=== PATIENT | female | born 1940 | race Caucasian/White ===

== ENCOUNTER 2018-07-02 11:08 | Emergency (ER) | payer MEDICARE ==
[~2018-07-02] VITALS: Ht 165.1 cm; Wt 87.3 kg
[~2018-07-02 11:08] MED LIST: AVELOX400 MG PO; CALCIUM 500 + D PO; CALCIUM600 M1 OR; CHILD'S ASA81 MG PO; CIPRO250 MG OR; CRANBERRY475 MG PO; EPIPEN0.3 MG IM; FLAGYL250 MG OR; IBUPROFEN600 MG PO; LANSOPRAZOLE30 MG PO; NEXIUM20 M1 OR; NITROFUR MAC50 MG PO; OCCUVITE PO; OCUVITE OR; PERCOCET 5/321 COMBO PO; PRILOSEC20 MG PO; ROBITUSSIN AC10 ML PO; SIMVASTATIN20 MG PO; SIMVASTATIN40 MG PO; ULTRAM50 M1 PO; VITAMIN B-121000 MCG PO; ZOFRAN ODT4 MG SL; ZPAK PO; [UNRECOGNIZED DRUG - CODE] OR
[2018-07-02] MEDS ORDERED: KEFLEX500 M1 PO (11:35)
[2018-07-02 11:38] VITALS: BP 158/92
== END 2018-07-02 11:44 | disposition home or self-care (01) ==
LOC: ED 11:08
DX: L03.116 Cellulitis of left lower limb (principal); S90.512A Abrasion, left ankle, initial encounter; K21.9 Gastro-esophageal reflux disease without esophagitis; E78.00 Pure hypercholesterolemia, unspecified; W22.8XXA Striking against or struck by other objects, initial encounter; Y92.009 Unspecified place in unspecified non-institutional (private) residence as the place of occurrence of the external cause

== ENCOUNTER 2020-07-27 08:21 | Emergency (ER) | payer MEDICARE ==
[~2020-07-27] VITALS: Ht 165.1 cm; Wt 82.7 kg
[~2020-07-27 08:21] MED LIST changes: +KEFLEX500 M1 PO
[2020-07-27] MEDS ORDERED: ELIQUIS5 MG PO (08:40)
[2020-07-27 08:41] LABS: HEMOGLOBIN 14.4 g/dl (12.0-16.0); IMMATURE GRANULOCYTES 0.4 % (0.0-5.0); MEAN CELL VOLUME 94.3 fL CALC (80.0-100.0); MEAN CORPUSCULAR HGB 30.2 pG CALC (26.0-32.0); NEUT# 9.88 thou/uL (2.00-7.15); RED BLOOD COUNT 4.77 mill/uL (4.20-5.60); RED CELL DISTRI WIDTH 12.4 % (11.5-15.5)
[2020-07-27 08:57] LABS: ALBUMIN 4.1 g/dL (3.2-5.0); ALKALINE PHOSPHATASE 92 u/l (38-126); ANION GAP 10 (6-22 (CALC)); BUN 14 mg/dL (8-23); BUN/CREATININE RATIO 17 (12-20 (CALC)); CARBON DIOXIDE 25 mmol/l (22-30); CHLORIDE 102 mmol/l (95-108); CREATININE 0.8 mg/dL (0.5-1.0); GFR > 60 ML/MIN (>=60 (CALC)); GFR FOR AFR.AMER. > 60 ML/MIN (>=60 (CALC)); POTASSIUM 3.8 mmol/l (3.5-5.1); SGOT/AST 25 u/l (9-36); SODIUM 134 mmol/l (137-146); TOTAL PROTEIN 7.4 g/dL (6.3-8.2)
[2020-07-27 09:31] LABS: URINE BLOOD DIPSTICK NEGATIVE (NEGATIVE); URINE GLUCOSE - DIPSTICK NEGATIVE (NEGATIVE); URINE KETONE TRACE mg/dL (NEGATIVE); URINE LEUK ESTERASE NEGATIVE (NEGATIVE); URINE PROTEIN - DIPSTICK TRACE mg/dL (NEG-TRACE)
[2020-07-27 09:41] LABS: URINE BILIRUBIN - DIPSTICK SMALL (NEGATIVE)
[2020-07-27 09:42] LABS: URINE COLOR DK. YELLOW; URINE NITRITE - DIPSTICK NEGATIVE (Negative)
[2020-07-27] MEDS ORDERED: CIPROFLOXACN500 MG PO (11:01)
[2020-07-27] MEDS ORDERED: METRONIDAZOL500 MG PO (11:01)
[2020-07-27] MEDS ORDERED: ONDANSETRON4 MG PO (11:01)
[2020-07-27 12:54] VITALS: BP 136/71
== END 2020-07-27 12:54 | disposition home or self-care (01) ==
LOC: ED 08:21
PROVIDERS: Emergency Medicine
DX: K57.32 Diverticulitis of large intestine without perforation or abscess without bleeding (principal); K21.9 Gastro-esophageal reflux disease without esophagitis; E78.00 Pure hypercholesterolemia, unspecified; Z85.51 Personal history of malignant neoplasm of bladder; Z20.822 Contact with and (suspected) exposure to COVID-19
CPT/HCPCS: J1956; Q9967

== ENCOUNTER 2022-01-14 06:05 | Emergency (ER) | payer MEDICARE ==
[2022-01-14] VITALS (8 sets, daily range): BP systolic 124–141; BP diastolic 66–83
[~2022-01-14] VITALS: Ht 165.1 cm; Wt 81.0 kg
[~2022-01-14 06:05] MED LIST changes: +CIPROFLOXACN500 MG PO; +ELIQUIS5 MG PO; +METRONIDAZOL500 MG PO; +ONDANSETRON4 MG PO
[2022-01-14] MEDS ORDERED: XARELTO10 MG PO (06:28)
[2022-01-14] MEDS ORDERED: MAGNESIUM 250 M1 TAB PO (06:29)
[2022-01-14 06:58] LABS: HEMATOCRIT 45.5 % (37.0-47.0); HEMOGLOBIN 14.8 g/dl (12.0-16.0); MEAN CELL VOLUME 94.4 fL CALC (80.0-100.0); MEAN CORPUSCULAR HGB 30.7 pG CALC (26.0-32.0); MEAN CORPUSCULAR HGB CONC 32.5 g/dL CAL (32.0-36.0); NEUT# 4.19 thou/uL (2.00-7.15); RED BLOOD COUNT 4.82 mill/uL (4.20-5.60); RED CELL DISTRI WIDTH 12.5 % (11.5-15.5)
[2022-01-14 07:13] LABS: ALKALINE PHOSPHATASE 94 u/l (38-126); ANION GAP 12 (6-22 (CALC)); BILIRUBIN, TOTAL 0.6 mg/dL (0.0-1.4); BUN 19 mg/dL (8-23); BUN/CREATININE RATIO 24 (12-20 (CALC)); CARBON DIOXIDE 24 mmol/l (22-30); CHLORIDE 105 mmol/l (95-108); CREATININE 0.8 mg/dL (0.5-1.0); GFR FOR AFR.AMER. > 60 ML/MIN (>=60 (CALC)); GFR OTHER RACES > 60 ML/MIN (>=60 (CALC)); LIPASE 51 u/l (23-300); POTASSIUM 4.2 mmol/l (3.5-5.1); SGOT/AST 33 u/l (9-36); SODIUM 136 mmol/l (137-146)
[2022-01-14 08:43] LABS: URINE BILIRUBIN - DIPSTICK NEGATIVE (NEGATIVE); URINE BLOOD DIPSTICK NEGATIVE (NEGATIVE); URINE COLOR YELLOW; URINE GLUCOSE - DIPSTICK NEGATIVE (NEGATIVE); URINE KETONE NEGATIVE (NEGATIVE); URINE PROTEIN - DIPSTICK NEGATIVE (NEG-TRACE); URINE UROBILINOGEN - DIPSTICK 0.2 E.U./dL (0.2)
[2022-01-14 08:45] LABS: URINE NITRITE - DIPSTICK NEGATIVE (Negative)
[2022-01-14] MEDS ORDERED: CIPROFLOXACN500 MG PO (08:45)
[2022-01-14] MEDS ORDERED: METRONIDAZOLE500 MG PO (08:45)
[2022-01-14] MEDS ORDERED: ZOFRAN4 MG/TAB PO (08:45)
[2022-01-14 08:46] LABS: URINE LEUK ESTERASE MODERATE (NEGATIVE)
[2022-01-14 08:50] LABS: URINE BACTERIA FEW hpf; URINE SQUAMOUS EPITHELIAL CELL MANY EPI/hpf (0-FEW)
== END 2022-01-14 08:55 | disposition home or self-care (01) ==
LOC: ED 06:05
PROVIDERS: Family Medicine
DX: K57.32 Diverticulitis of large intestine without perforation or abscess without bleeding (principal); K21.9 Gastro-esophageal reflux disease without esophagitis; E78.00 Pure hypercholesterolemia, unspecified; I48.91 Unspecified atrial fibrillation
CPT/HCPCS: Q9967

== ENCOUNTER 2024-05-30 07:59 | Observation (INO) | payer MEDICARE ==
[~2024-05-30] VITALS: Ht 165.1 cm; Wt 82.2 kg
[2024-05-30] VITALS (19 sets, daily range): BP systolic 113–150; BP diastolic 56–89
[~2024-05-30 07:59] MED LIST changes: +MAGNESIUM 250 M1 TAB PO; +METRONIDAZOLE500 MG PO; +XARELTO10 MG PO; +ZOFRAN4 MG/TAB PO
--- NOTE | 2024-05-30 08:00 | NUR ---
PT BROUGHT BACK TO ER ROOM 6 VIA EMS
[2024-05-30 08:21] LABS: BASO% 0.4 % (0-3); EOS% 1.8 % (0-8); HEMATOCRIT 45.2 % (37.0-47.0); HEMOGLOBIN 14.3 g/dl (12.0-16.0); IMMATURE GRANULOCYTES 0.2 % (0.0-5.0); MEAN CELL VOLUME 95.4 fL CALC (80.0-100.0); MEAN CORPUSCULAR HGB 30.2 pG CALC (26.0-32.0); MEAN CORPUSCULAR HGB CONC 31.6 g/dL CAL (32.0-36.0); MONO% 8.5 % (2-13); NEUT# 5.58 thou/uL (2.00-7.15); NEUT% 68.1 % (42-76); RED BLOOD COUNT 4.74 mill/uL (4.20-5.60); RED CELL DISTRI WIDTH 12.8 % (11.5-15.5)
[2024-05-30 08:35] LABS: ALBUMIN 4.1 g/dL (3.2-5.0); ALKALINE PHOSPHATASE 84 u/l (38-126); ANION GAP 10 (6-22 (CALC)); BILIRUBIN, TOTAL 1.1 mg/dL (0.02-1.3); BUN 14 mg/dL (8-23); BUN/CREATININE RATIO 17 (12-20 (CALC)); CARBON DIOXIDE 25 mmol/l (22-30); CHLORIDE 107 mmol/l (95-108); CREATININE 0.8 mg/dL (0.5-1.0); ESTIMATED GFR 72 ML/MIN (>=90 (CALC)); LIPASE 52 u/l (23-300); POTASSIUM 4.2 mmol/l (3.5-5.1); SGOT/AST 34 u/l (9-36); SODIUM 138 mmol/l (137-146); TOTAL PROTEIN 7.4 g/dL (6.3-8.2)
[2024-05-30] MEDS ORDERED: KETOROLAC TROMETHAMINE 15 MG/ML SDV IV ONE (08:45)
--- NOTE | 2024-05-30 09:04 | NUR ---
Pt to CT scan.
--- NOTE | 2024-05-30 10:15 | NUR ---
Reassessment of patient completed. Resting comfortably in stretcher.
--- NOTE | 2024-05-30 11:02 | NUR ---
Reassessment of patient completed. No distress noted.
[2024-05-30] MEDS ORDERED: MAGNESIUM HYDROXIDE 30 ML UDC PO PRN (11:50)
[2024-05-30] MEDS ORDERED: ACETAMINOPHEN 325 MG/TAB PO PRN (11:50)
[2024-05-30] MEDS ORDERED: SODIUM CHLORIDE 0.9% 1,000 ML IV PRN (11:50)
[2024-05-30] MEDS ORDERED: PROTONIX40 M2 PO (11:54)
[2024-05-30] MEDS ORDERED: ASPIRIN 81 LOW81 MG PO (11:58)
[2024-05-30 12:02] LABS: URINE BILIRUBIN - DIPSTICK Negative (NEGATIVE); URINE BLOOD DIPSTICK Negative (NEGATIVE); URINE GLUCOSE - DIPSTICK Negative (NEGATIVE); URINE KETONE Negative (NEGATIVE); URINE LEUK ESTERASE Negative (NEGATIVE); URINE NITRITE - DIPSTICK Negative (Negative); URINE PH 6.5 (4.5-8.0); URINE PROTEIN - DIPSTICK Negative (NEG-TRACE); URINE UROBILINOGEN - DIPSTICK 0.2 E.U./dL (0.2)
[2024-05-30 12:03] LABS: URINE COLOR Yellow
--- NOTE | 2024-05-30 12:49 | NUR ---
Called and gave report to OMAR Olivia
[2024-05-30] MEDS ORDERED: PANTOPRAZOLE SODIUM Sesquihydr 40 MG/TAB PO SCH (14:00)
[2024-05-30] MEDS ORDERED: ONDANSETRON HCl 4 MG/2 ML SDV IV PRN (15:45)
[2024-05-30] MEDS ORDERED: KETOROLAC TROMETHAMINE 15 MG/ML SDV IV PRN (15:45)
--- NOTE | 2024-05-30 15:58 | NUR ---
PT IS ALERT TIMES 4. PT IS A NEW ADMIT TO THE UNIT AT 1330 THIS SHIFT. OT DX IS ABDOMEN PAIN SHE HAS A HX OF AFIB BLADDER/CANCER AND GERD. PT IS AMBULATORY WITH A STANDBY ASSIST IN HER ROOM. PT HAS HAD 1 LOOSE STOOL UPON ARRIVAL TO THE UNIT. MEDICATION GIVEN ORDERED. PT HAS A IV TO THE LEFT A/C THAT IS INFUSING WELL NO S/O INFECTION NOTED. PT WAS EDUCATED ON THE SAFETY OF USING HER CALL RUSSELL TO ASK FOR HELP. ALL SAFETY MEASURES ARE IN PLACE. PT IS ON ROOM AIR. PT SKIN IS INTACT. LUNG SOUNDS ARE CLEAR. PT VERBALIZED SHE UNDERSTOOD THE EDUCATION ON FALL PREVENTION. NURSING WILL CONTINUE TO [facility] FOR REHAB MEDICINE.
--- NOTE | 2024-05-30 18:47 | NUR ---
1600 NOTE: PT IS ALERT AND CAN MAKE HE NEEDS KNOWN. PT iv FLUIDS CONTINUE TO INFUSION ORDERED. PT IS ON A CLEAR LIQUID DIET. PT PAIN MANAGEMENT IN PROGRESS WITH POSITIVE EFFECT. ALL SAFETY MEASURES IN PLACE. NURSING WILL CONTINUE TO MONITIOR.
[2024-05-30] MEDS ORDERED: ENOXAPARIN SODIUM 40 MG/0.4 ML SYR SC SCH (21:00)
[2024-05-31] VITALS (8 sets, daily range): BP systolic 102–132; BP diastolic 54–75
[2024-05-31 05:50] LABS: BASO% 0.4 % (0-3); EOS% 4.2 % (0-8); HEMATOCRIT 39.9 % (37.0-47.0); HEMOGLOBIN 12.5 g/dl (12.0-16.0); IMMATURE GRANULOCYTES 0.2 % (0.0-5.0); LYMPH% 24.4 % (15-41); MEAN CELL VOLUME 96.6 fL CALC (80.0-100.0); MEAN CORPUSCULAR HGB 30.3 pG CALC (26.0-32.0); MEAN CORPUSCULAR HGB CONC 31.3 g/dL CAL (32.0-36.0); MONO% 10.3 % (2-13); NEUT# 3.31 thou/uL (2.00-7.15); NEUT% 60.5 % (42-76); RED BLOOD COUNT 4.13 mill/uL (4.20-5.60); RED CELL DISTRI WIDTH 12.9 % (11.5-15.5)
[2024-05-31 06:02] LABS: BILIRUBIN, TOTAL 0.8 mg/dL (0.02-1.3); CREATININE 0.8 mg/dL (0.5-1.0); MAGNESIUM 2.1 mg/dL (1.6-2.3); POTASSIUM 3.9 mmol/l (3.5-5.1)
[2024-05-31 06:17] LABS: ALBUMIN 2.9 g/dL (3.2-5.0); TOTAL PROTEIN 5.5 g/dL (6.3-8.2)
--- NOTE | 2024-05-31 07:15 | NUR ---
REPORT RECEIVED FROM ELLIERN
--- NOTE | 2024-05-31 08:36 | NUR ---
AT BEDSIDE DISCUSSING POC WITH PT.
--- NOTE | 2024-05-31 08:40 | NUR ---
PT RESTING IN SEMI FOWLERS POSITION,A&O X3;PT DENIES ANY CURRENT PAIN OR DISCOMFORTS, PAIN SCALE AND REPORTING EDUCATED;RESPIRATIONS EVEN AND UNLABORED ON RA;ABDOMEN SOFT ON PALPATION WITH TENDERNESS NOTED THROGHOUT;STRONG PEDAL PULSES;SKIN INTACT;TELE MONITORING [address];#20G TO LFA INFUSING NS @ 100ML/HR,SITE APPEARS HEALTHY;PT DENIES ANY ADDITIONAL QUESTIONS OR NEEDS;ENCOURAGED TO CALL FOR ASSISTANCE IF NEEDED;FALL PRECAUTIONS IN PLACE WITH BED IN THE LOWEST POSITION WITH CALL LIGHT IN REACH;FREQUENT ROUNDS MADE.
--- NOTE | 2024-05-31 11:05 | NUR ---
PT RESTING IN SEMI FOWLERS POSITION;RESPIRATIONS EVEN AND UNLABORED ON RA;PT DENIES ANY CURRENT PAIN OR DISCOMFORTS;TELE MONITORING IN PLACE;IV SITE PATENT INFUSING NS @ 100ML/HR;ABX ADMINISTERED AT THIS TIME;PT EDUCATED ON THE NEED FOR A STOOL SAMPLE AND VERBALIZES UNDERSTANDING;ENCOURAGED TO CALL FOR ASSISTANCE IF NEEDED;CALL LIGHT IN REACH;FREQUENT ROUNDS MADE.
--- NOTE | 2024-05-31 15:25 | NUR ---
PT RESTING IN SEMI FOWLERS POSITION;RESPIRATIONS EVEN AND UNLABORED ON RA;PT DENIES ANY CURRENT PAIN OR DISCOMFORTS-REPORTS THAT SHE TOLERATED LUNCH WELL;TELE MONITORING IN PLACE;IV SITE TO LAC REMAINS PATENT INFUSING NS PER ORDER;PT ENCOURAGED TO CALL FOR ASSISTANCE IF NEEDED;CALL LIGHT IN REACH;FREQUENT ROUNDS MADE.
--- NOTE | 2024-05-31 19:20 | NUR ---
PATIENT OBSERVED TO BE RESTING IN BED WATCHING TV. PATIENT CAN MAKE NEEDES KNOWN. NONE NEEDED AT THIS TIME. BEDSIDE ASSESSMENT COMPLETE. UNLABORED RESP. BOWEL SOUNDS PRESENT IN ALL 4 QUADRENTS. SOFT AND DISTENDED ABDOMEN. NO COMPLAINTS OF PAIN AT THIS TIME. BED AT LOWEST POSITION. CALL LIGHT WITH IN REACH.
--- NOTE | 2024-06-01 00:31 | NUR ---
PATIENT IN ROOM RESTING IN BED WITH EYES CLOSED. PATIENT RESPONDS TO VERBAL STIMULI. NO COMPLAINTS OF PAIN AT THIS TIME. UNLABORED RESP, NO VISUAL SIGNS OF DISTRESS. BED AT LOWEST POSITION. CALL LIGHT WITH IN REACH.
[2024-06-01 00:36] VITALS: BP 129/75
[2024-06-01 04:17] VITALS: BP 135/69
--- NOTE | 2024-06-01 04:45 | NUR ---
PATIENT OBSERVED TO BE RESTING IN BED AWAKE. NO COMPLAINTS OF PAIN AT THIS TIME. EQUAL UNLABORED RESP, NO VISUAL SIGNS OF DISTRESS. BED AT LOWEST POSITION. CALL LIGHT WITH IN REACH.
[2024-06-01 05:50] LABS: BASO% 0.7 % (0-3); EOS% 5.6 % (0-8); HEMATOCRIT 39.2 % (37.0-47.0); HEMOGLOBIN 12.4 g/dl (12.0-16.0); IMMATURE GRANULOCYTES 0.2 % (0.0-5.0); LYMPH% 30.4 % (15-41); MEAN CELL VOLUME 96.6 fL CALC (80.0-100.0); MEAN CORPUSCULAR HGB 30.5 pG CALC (26.0-32.0); MEAN CORPUSCULAR HGB CONC 31.6 g/dL CAL (32.0-36.0); NEUT# 2.29 thou/uL (2.00-7.15); NEUT% 53.1 % (42-76); RED BLOOD COUNT 4.06 mill/uL (4.20-5.60); RED CELL DISTRI WIDTH 12.8 % (11.5-15.5)
[2024-06-01 06:17] LABS: BILIRUBIN, TOTAL 0.6 mg/dL (0.02-1.3); CREATININE 0.8 mg/dL (0.5-1.0); MAGNESIUM 2.1 mg/dL (1.6-2.3); POTASSIUM 4.1 mmol/l (3.5-5.1); TOTAL PROTEIN 5.6 g/dL (6.3-8.2)
[2024-06-01 06:18] VITALS: BP 144/80
[2024-06-01 07:01] VITALS: BP 144/80
--- NOTE | 2024-06-01 07:53 | NUR ---
PT IS FOUND RESTING COMFORTABLY IN BED. PT IS A&O X4; PT SHOWS NO SIGNS OF DISTRESS. PT CAN MAKE HER NEEDS KNOWN. PLAN OF CARE WAS REVIEWED WITH THE PT; PT STATES NO FURTHER QUESTIONS AT THIS TIME. ALL NATIONAL PATIENT SAFETY PRECAUTIONS ARE IN PLACE.
[2024-06-01] MEDS ORDERED: CIPROFLOXACN500 MG PO (10:01)
[2024-06-01] MEDS ORDERED: METRONIDAZOLE500 MG PO (10:02)
[2024-06-01 10:23] VITALS: BP 138/69
[2024-06-01 10:32] VITALS: BP 138/69
--- NOTE | 2024-06-01 12:19 | NUR ---
PT'S CONDITION REMAINS THE SAME. THIS RN HAS BEEN ENCOURAGING THE PT TO EAT PRIOR TO DISCHARGE. ALL NATIONAL PATIENT SAFETY PRECAUTIONS IN PLACE.
--- NOTE | 2024-06-04 09:58 | NUR ---
Discharge follow up call completed 06/04/24. Patient states it is taking her longer than expected to regain her strength, but she is improving. Patient is taking prescribed medication as directed. Patient has not made a follow up appointment yet but will do so as soon as she feels a little stronger. No needs or concerns verbalized at this time.
== END 2024-06-01 13:09 | disposition home or self-care (01) ==
LOC: ED 07:59 → ED-I 11:13 → ED 11:45 → MS2 11:46
PROVIDERS: Family Medicine; Nurse Practitioner Family; ADMIT Internal Medicine; ATTEND Internal Medicine
DX: K57.32 Diverticulitis of large intestine without perforation or abscess without bleeding (principal); I48.91 Unspecified atrial fibrillation; E78.5 Hyperlipidemia, unspecified; K21.9 Gastro-esophageal reflux disease without esophagitis; Z85.51 Personal history of malignant neoplasm of bladder; Z95.818 Presence of other cardiac implants and grafts
CPT/HCPCS: J0744; J1650; J1836; J1885; J2405; Q9967